=== PATIENT | female | born 1985 | race Caucasian/White ===

== ENCOUNTER 2017-11-03 20:54 | Emergency (ER) | payer SELFPAY ==
[2017-11-03 21:13] VITALS: RESP 16; TEMP 98.1
--- NOTE | 2017-11-03 21:18 | EDPHY ---
H & P Smoking Status: Heavy smoker Time Seen by Provider: 11/03/17 21:01 HPI/ROS: CHIEF COMPLAINT: "I think I am having a miscarriage" HISTORY OF PRESENT ILLNESS: Patient is a 32-year-old female whose last menstrual period was 1 month ago. 2-3 days ago she started to have bleeding. She was concerned that she is miscarrying. This is on time with her normal menses. However, she feels as though there is something in her uterus that needs to come out. She is not lightheaded or dizzy. She has had no nausea or vomiting. No chest pain or shortness of breath. She denies any foreign body in her uterus. She has not recently use a tampon. She has no IUD. Patient states she used cocaine heavily this last week. REVIEW OF SYSTEMS: My complete review of systems is negative except as mentioned in the HPI. ( Zamzam Aguilar) Past Medical/Surgical History: Negative Past surgical history: Denies Social history: The patient smokes cigarettes. She denies alcohol use. She used cocaine heavily this last week. (Zamzam Aguilar) Physical Exam: Vitals noted GENERAL: Well-appearing, in no acute distress, alert. HEENT: Eyes normal to inspection, normal pharynx, no signs of dehydration. pink conjunctiva NECK: No thyromegaly, no lymphadenopathy, supple. RESPIRATORY: Clear to auscultation bilaterally, no rales, rhonchi or wheezing. CVS: Regular rate and rhythm, no rubs, murmurs, or gallops. ABDOMEN: Soft, nontender, nondistended, no organomegaly. BACK: Normal to inspection, no CVA tenderness. SKIN: Normal color, no rash, warm, dry. No pallor. EXTREMITIES: No pedal edema, no joint swelling. NEURO/PSYCH: Alert and oriented, normal mood and affect. (Zamzam Aguilar) Constitutional: Initial Vital Signs Temperature (C) 36.7 C 11/03/17 20:58 Heart Rate 69 11/03/17 20:58 Respiratory Rate 16 11/03/17 20:58 Blood Pressure 140/89 H 11/03/17 20:58 O2 Sat (%) 100 11/03/17 20:58 O2 Delivery Mode Room Air Allergies/Adverse Reactions: No Known Allergies Allergy (Verified 11/03/17 21:01) Home Medications: Medication Instructions Recorded NK [No Known Home Meds] 11/03/17 Medical Decision Making ED Course/Re-evaluation: In the emergency department I discussed possible etiologies with the patient. I answered all her questions. An IV was placed. Laboratory studies were obtained. Ultrasound was ordered. Patient's CBC was normal. Patient's chemistry panel is notable for mildly elevated chloride a low CO2. Beta HCG is pending. Ultrasound results are pending. 2200: Patient is signed out to at change of shift. (Zamzam Aguilar) 10:24 p.m.- Patient's ultrasound reveals a normal uterus, no IUP, small subserosal fibroid, this was discussed with Dr. Reeves. Patient's quantitative HCG is not detectable. The cause of patient's bleeding is likely related to menorrhagia or regular menses. I have discussed this with her. She will be discharged home. (Lena Brown) Differential Diagnosis: My differential includes but is not limited to , ectopic , uterine foreign body, mass, malignancy, dysfunctional uterine bleeding, menses ( Zamzam Aguilar) - Data Points Laboratory Results: Laboratory Results 11/03/17 21:32 11/03/17 21:32 11/03/17 11/03/17 11/03/17 21:45 21:32 21:32 WBC 6.43 10^3/uL 10^3/uL (3.80-9.50) RBC 4.23 10^6/uL 10^6/uL (4.18-5.33) Hgb 14.0 g/dL g/dL (12.6-16.3) Hct 40.2 % % (38.0-47.0) MCV 95.0 fL fL (81.5-99.8) MCH 33.1 pg pg (27.9-34.1) MCHC 34.8 g/dL g/dL (32.4-36.7) RDW 12.2 % % (11.5-15.2) Plt Count 324 10^3/uL 10^3/uL (150-400) MPV 8.8 fL fL (8.7-11.7) Neut % (Auto) 53.6 % % (39.3-74.2) Lymph % (Auto) 32.2 % % (15.0-45.0) Stokes % (Auto) 9.2 % % (4.5-13.0) Eos % (Auto) 4.2 % % (0.6-7.6) Baso % (Auto) 0.5 % % (0.3-1.7) Nucleat RBC Rel Count 0.0 % % (0.0-0.2) Absolute Neuts (auto) 3.45 10^3/uL 10^3/uL (1.70-6.50) Absolute Lymphs (auto) 2.07 10^3/uL 10^3/uL (1.00-3.00) Absolute Monos (auto) 0.59 10^3/uL 10^3/uL (0.30-0.80) Absolute Eos (auto) 0.27 10^3/uL 10^3/uL (0.03-0.40) Absolute Basos (auto) 0.03 10^3/uL 10^3/uL (0.02-0.10) Absolute Nucleated RBC 0.00 10^3/uL 10^3/uL (0-0.01) Immature Gran % 0.3 % % (0.0-1.1) Immature Gran # 0.02 10^3/uL 10^3/uL (0.00-0.10) Sodium 138 mEq/L mEq/L (135-145) Potassium 3.8 mEq/L mEq/L (3.5-5.2) Chloride 111 mEq/L H mEq/L (97-110) Carbon Dioxide 20 mEq/l L mEq/l (22-31) Anion Gap 7 mEq/L L mEq/L (8-16) BUN 17 mg/dL mg/dL (7-23) Creatinine 0.9 mg/dL mg/dL (0.6-1.0) Estimated GFR > 60 Glucose 100 mg/dL mg/dL (70-100) Calcium 8.6 mg/dL mg/dL (8.5-10.4) Beta HCG, Quant < 2.39 mIU/mL mIU/mL (0.00-4.83) Patient ABO/Rh A POSITIVE Medications Given: Discontinued Medications Sodium Chloride (Ns) 500 mls @ 0 mls/hr IV ONCE ONE; Wide Open PRN Reason: Protocol Stop: 11/03/17 21:20 Last Admin: 11/03/17 21:32 Dose: 500 mls Departure - Departure Disposition: Home, Routine, Self-Care Clinical Impression: Vaginal bleeding Condition: Good Instructions: Dysfunctional Uterine Bleeding (ED) Additional Instructions: Please return to the emergency department if your worse in any way. Your testing today revealed that you are not . Referrals: [facility],. [Clinic] - As per Instructions
[2017-11-03] MEDS ORDERED: NS 500 ML IV ONE (21:19)
[2017-11-03 21:40] LABS: PLATELET COUNT 324 10^3/uL (150-400)
[2017-11-03 22:40] VITALS: BP 124/84; PULSE 82; O2SAT 96
== END 2017-11-03 22:39 | disposition home or self-care (01) ==
DX: N93.9 Abnormal uterine and vaginal bleeding, unspecified (principal); F17.210 Nicotine dependence, cigarettes, uncomplicated